=== PATIENT | female | born 1960 | race Caucasian/White ===

== ENCOUNTER 2019-10-30 12:00 | Outpatient (CLI) | payer OTHER, SELFPAY ==
--- NOTE | ~2019-10-30 | MMUS_ITS ---
EXAMINATION: MM screen RT diag LT w fernando, US breast LT limited HISTORY: Probable benign focal mammographic asymmetry of left breast reported on 01/23/2019 diagnostic left digital mammogram TECHNIQUE: Bilateral MLO and cc and right ML 3-D tomosynthesis images were performed and synthetic 2- D images were generated. CAD analysis was submitted and interpreted. High resolution targeted lower o uter quadrant left breast ultrasound was performed. COMPARISON: 01/23/2019 and 05/29/2018 diagnostic left digital mammogram examinations 05/10/2018 bilateral digital screening mammogram BREAST PARENCHYMAL COMPOSITION: There are scattered areas of fibroglandular density. FINDINGS: MAMMOGRAPHIC FINDINGS: Stable mammographic asymmetry posteriorly in the lower outer quadrant of the left breast. 2 05/10/2018 . No interval suspicious mass, architectural distortion, malignant calcification, skin thickening or re traction or significant new or developing density is evident. Occasional punctate benign calcificatio ns are noted bilaterally. ULTRASOUND: No suspicious solid mass or shadowing is evident. IMPRESSION: 1. Probable benign mammographic asymmetry 2. 6 month diagnostic left mammogram follow-up is recommended, with ultrasound if required. BI-RADS category 3, probably benign findings. Reviewed, dictated and finalized at location A. R MIXER IMPRESSION: 1. Probable benign mammographic asymmetry 2. 6 month diagnostic left mammogram follow-up is recommended, with ultrasound if required. BI-RADS category 3, probably benign findings.
== END 2019-10-30 12:01 | disposition home or self-care (01) ==
PROVIDERS: PCP Family Medicine; Visit Provider Obstetrics & Gynecology
DX: R92.8 Other abnormal and inconclusive findings on diagnostic imaging of breast (principal); Z12.31 Encounter for screening mammogram for malignant neoplasm of breast
CPT/HCPCS: 76642; 77063; 77065; 77067

== ENCOUNTER 2020-07-08 13:34 | Outpatient (CLI) | payer OTHER, SELFPAY ==
--- NOTE | ~2020-07-08 | XR_ITS ---
EXAMINATION: XR chest 2V DATE: 07/08/2020 14:03 INDICATION: COVID positive presenting with one week of cough and shortness of breath TECHNIQUE: PA and lateral views of the chest were obtained. COMPARISON: Chest radiograph dated none FINDINGS: Patchy airspace opacities in the bilateral mid to lower lung zones, mild on the right and moderate in the left lower lobe consistent with pneumonia. No pleural effusion or pneumothorax. The cardiomedias tinal silhouette is normal. Mild thoracic kyphosis with mild anterior wedging of a midthoracic verteb ral body, likely T7 and mild spondylosis. IMPRESSION: 1. Bilateral airspace disease greatest in the left lower lobe consistent with pneumonia. Reviewed, dictated and finalized at location . EYOR WEIGHER OPERATOR IMPRESSION: 1. Bilateral airspace disease greatest in the left lower lobe consistent with p neumonia.
== END 2020-07-08 13:35 | disposition home or self-care (01) ==
PROVIDERS: PCP Nurse Practitioner Adult Health; Visit Provider Nurse Practitioner Adult Health
DX: R05 Cough (principal); R91.8 Other nonspecific abnormal finding of lung field
CPT/HCPCS: 71046

== ENCOUNTER → 2020-08-05 08:28 | Outpatient (CLI) | payer OTHER, SELFPAY ==
--- NOTE | ~2020-08-05 | CT_ITS ---
EXAMINATION: CT chest wo con DATE: 08/05/2020 08:54 INDICATION: Pneumonia, chest tightness, history of COVID 19 TECHNIQUE: Computed tomography (CT) of the chest was performed without intravenous contrast. The dose -length product (DLP) was 456.02 mGy-cm. Automated exposure control and iterative reconstruction tech nique were employed. COMPARISON: Chest radiograph dated 07/08/2020 FINDINGS: There are patchy bilateral groundglass opacities. No focal airspace consolidation is identi fied. There is no pleural effusion or pneumothorax. The heart size is normal. There is mild bilateral hilar and right paratracheal lymphadenopathy. Calcified coronary artery sclerosis is noted. Cholelit hiasis is noted. There is moderate thoracic spondylosis. IMPRESSION: 1. Patchy bilateral groundglass opacities which likely reflect sequela of COVID 19 pneumonia although multifocal pneumonia would have a similar appearance. 2. Bilateral hilar and right paratracheal lymphadenopathy, likely reactive. Reviewed, dictated and finalized at location A. S ENABLEMENT CONSULTANT
== END ==
PROVIDERS: PCP Nurse Practitioner Adult Health; Visit Provider Nurse Practitioner Adult Health
DX: U07.1 COVID-19 (principal); R91.8 Other nonspecific abnormal finding of lung field
CPT/HCPCS: 71250

== ENCOUNTER 2020-09-09 13:39 | Outpatient (CLI) | payer OTHER, SELFPAY ==
--- NOTE | ~2020-09-09 | MMUS_ITS ---
EXAMINATION: MM diagnostic julieth LT w fernando, US breast LT limited HISTORY: Follow-up left breast asymmetry TECHNIQUE: Additional 3-D tomosynthesis images of the left breast were performed and synthetic 2-D im ages were generated. CAD analysis was submitted and interpreted. High resolution Limited left breast ultrasound was performed. COMPARISON: Comparison to multiple prior studies sequentially, with oldest reviewed study dated 09/19. BREAST PARENCHYMAL COMPOSITION: Breast composed of scattered areas of fibroglandular density. FINDINGS: MAMMOGRAPHIC FINDINGS: Left breast asymmetry in the lower outer quadrant is stable. No new masses, calcifications or archite ctural distortion are identified in the left breast to suggest malignancy. ULTRASOUND: Limited left breast ultrasound: Normal heterogeneous echotexture without focal solid or cystic mass. IMPRESSION: 1. No mammographic or sonographic evidence for malignancy in the left breast. 2. Routine yearly screening mammogram and regular clinical breast examination are recommended. BI-RADS Category 1: Negative Reviewed, dictated and finalized at location A. X RAY CONSULTANT IMPRESSION: 1. No mammographic or sonographic evidence for malignancy in the left breast. 2. Routine yearly screening mammogram and regular clinical breast examination a re recommended. BI-RADS Category 1: Negative
== END 2020-09-09 13:40 | disposition home or self-care (01) ==
LOC: ANHIMG 13:44
PROVIDERS: PCP Nurse Practitioner Adult Health; Visit Provider Obstetrics & Gynecology
DX: R92.8 Other abnormal and inconclusive findings on diagnostic imaging of breast (principal)
CPT/HCPCS: 76642; 77061; 77065; G0279